=== PATIENT | female | born 1990 | race Asian ===

== ENCOUNTER 2018-12-17 15:44 | Emergency (ER) | payer OTHER ==
[~2018-12-17] VITALS: Ht 157.5 cm; Wt 52.2 kg
[2018-12-17 15:45] VITALS: Ht 157.5 cm; Wt 52.2 kg
[2018-12-17 16:20] VITALS: BP 130/95
== END 2018-12-17 17:33 | disposition other institution (70) ==
LOC: ED 15:44
DX: Z02.89 Encounter for other administrative examinations (principal)